=== PATIENT | male | born 1945 ===

== ENCOUNTER 2019-01-13 12:45 | Observation (INO) ==
[2019-01-13] MEDS ORDERED: Ringers Solution, Lactated 1,000 ML IVC SCH ×2 (13:15→18:06)
[2019-01-13] MEDS ORDERED: CeFAZolin Syr 2,000MG/20 ML 2,000 MG/20 ML SYRINGE IVPB ONE (13:15)
[2019-01-13] MEDS ORDERED: Pregabalin 75 MG CAPSULE PO ONE (13:28)
[2019-01-13] MEDS ORDERED: Propofol 500 MG/50 ML INFUS..BTL ONE (13:28)
[2019-01-13] MEDS ORDERED: Famotidine 20 MG/2 ML VIAL IVP ONE (13:28)
[2019-01-13] MEDS ORDERED: Acetaminophen IV 1,000 MG/100 ML INFUS..BTL IVPB ONE (13:28)
[2019-01-13] MEDS ORDERED: Celecoxib 100 MG CAPSULE PO ONE (13:28)
[2019-01-13] MEDS ORDERED: *HR* FentaNYL (PF) 100 MCG/2 ML VIAL ONE (13:30)
[2019-01-13] MEDS ORDERED: *HR* Propofol 200 MG/20 ML VIAL IVP ONE (13:30)
[2019-01-13] MEDS ORDERED: *HR* Midazolam HCl 2 MG/2 ML VIAL ONE (13:30)
[2019-01-13] MEDS ORDERED: Lidocaine -MPF 2% 2 ML VIAL ONE (13:34)
[2019-01-13] MEDS ORDERED: Ondansetron 4 MG/2 ML VIAL ONE (13:34)
[2019-01-13] MEDS ORDERED: Tranexamic Acid 1,000 MG/10 ML VIAL ONE ×2 (13:36→14:55)
[2019-01-13] MEDS ORDERED: Ropivacaine/PF 0.5% 30 ML VIAL ONE (13:55)
[2019-01-13] MEDS ORDERED: Ethanol\\Acetic Acid\\Na Ace\\Ben 1,000 ML IRRIG.SOLN IR ONE (14:28)
[2019-01-13] MEDS ORDERED: Total Joint Mixture (50 ml) IR ONE (14:50)
[2019-01-13] MEDS ORDERED: *HR* PHENYLEPHRINE 1,000 MCG/10 ML SYRINGE IVP ONE ×2 (15:11→15:59)
[2019-01-13 17:37] LABS: Hematocrit 35.5 % (37.5-50.1); Hemoglobin 12.3 g/dL (12.9-16.9)
[2019-01-13] MEDS ORDERED: Dextrose Gel 15 GM/37.5 ML TUBE PO PRN ×2 (18:06)
[2019-01-13] MEDS ORDERED: MOM Conc 10 ML UD.LIQ PO PRN (18:06)
[2019-01-13] MEDS ORDERED: Naloxone 0.4 MG/ML INJ IVP PRN (18:06)
[2019-01-13] MEDS ORDERED: Temazepam 15 MG CAPSULE PO PRN (18:06)
[2019-01-13] MEDS ORDERED: *HR* Dextrose 50 % in Water (Syg) 50 ML SYRINGE IVP PRN (18:06)
[2019-01-13] MEDS ORDERED: Sennosides 8.6 MG TABLET PO PRN (18:06)
[2019-01-13] MEDS ORDERED: *HR* Promethazine 25 MG/ML VIAL IVP PRN (18:06)
[2019-01-13] MEDS ORDERED: traMADol 50 MG TABLET PO PRN (18:06)
[2019-01-13] MEDS ORDERED: D5% in Water 1,000 ML IVC PRN (18:06)
[2019-01-13] MEDS ORDERED: Ondansetron 4 MG/2 ML VIAL IVP PRN (18:06)
[2019-01-13] MEDS: *HR* Metformin 500 MG TABLET PO SCH (20:15)
[2019-01-13] MEDS: GlipiZIDE 5 MG TABLET PO SCH (20:15)
[2019-01-13] MEDS: Insulin LISPRO 300 UNITS/3 ML VIAL SQ SCH ×2 (20:16→22:43)
[2019-01-13] MEDS: Ascorbic Acid 500 MG TABLET PO SCH (20:16)
[2019-01-13] MEDS: *HR* OxyCODONE Immed Rel 5 MG TABLET PO PRN (22:44)
[2019-01-13] MEDS: Insulin DETEMIR 100 UNIT/ML X5UNITS SQ SCH (22:44)
[2019-01-14] MEDS: *HR* Enoxaparin 30 MG/0.3 ML SYRINGE SQ SCH ×2 (05:43→17:02)
[2019-01-14] MEDS: HYDROcodone BIT/Homatropine 5 MG TABLET PO PRN ×2 (05:50→15:42)
[2019-01-14 06:12] LABS: Basophils % 0.2 %
[2019-01-14 06:14] LABS: Eosinophils # 0.1 K/mcL (0.0-0.6); Eosinophils % 2.4 %; Hematocrit 33.8 % (37.5-50.1); Hemoglobin 11.6 g/dL (12.9-16.9); Immature Platelets 8.5 % (1.1-6.1); Lymphocytes # 0.8 K/mcL (0.6-4.6); Lymphocytes % 19.6 %; Mean Corpuscular HGB Conc 34.3 g/dL (31.6-35.5); Mean Corpuscular Hemoglobin 29.7 pg (28.0-33.3); Mean Corpuscular Volume 86.4 fL (83.0-100.0); Mean Platelet Volume 12.2 fL (9.4-12.4); Monocytes # 0.4 K/mcL (0.0-1.3); Monocytes % 10.1 %; Red Blood Count 3.91 M/mcL (4.19-5.50); Red Cell Distribution Width 12.9 % (11.5-14.5); Segmented Neutrophils % 67.7 %; White Blood Count 4.2 K/mcL (4.3-11.1)
[2019-01-14 06:15] LABS: Neutrophils # 2.8 K/mcL (1.6-8.9); Platelet Count 87 K/mcL (140-400)
[2019-01-14 06:33] LABS: Calcium 9.5 mg/dL (8.6-10.3); Potassium 5.1 mEq/L (3.5-5.1)
[2019-01-14 06:38] LABS: Platelet Estimate Decreased (Normal)
[2019-01-14] MEDS: Vitamin E 200 UNIT (90MG) CAPSULE PO SCH (08:10)
[2019-01-14] MEDS: Multivit/Ca/Min/Fe/FA 1 TAB TABLET PO SCH (08:10)
[2019-01-14] MEDS: Lisinopril 20 MG TABLET PO SCH (08:10)
[2019-01-14] MEDS: amLODIPine 5 MG TABLET PO SCH (08:10)
[2019-01-14] MEDS: GlipiZIDE 5 MG TABLET PO SCH ×2 (08:10→21:43)
[2019-01-14] MEDS: Insulin DETEMIR 100 UNIT/ML X5UNITS SQ SCH ×2 (08:11→17:02)
[2019-01-14] MEDS: Ascorbic Acid 500 MG TABLET PO SCH ×3 (08:11→15:42)
[2019-01-14] MEDS: *HR* Metformin 500 MG TABLET PO SCH ×2 (08:11→15:42)
[2019-01-14] MEDS: Insulin LISPRO 300 UNITS/3 ML VIAL SQ SCH ×4 (08:14→21:38)
[2019-01-14] MEDS: *HR* OxyCODONE Immed Rel 5 MG TABLET PO PRN ×2 (08:31→19:54)
[2019-01-14] MEDS ORDERED: MULTIVITAMIN PO SCH (09:00)
[2019-01-15 04:28] LABS: Basophils % 0.2 %; Hematocrit 34.1 % (37.5-50.1); Mean Corpuscular Volume 85.3 fL (83.0-100.0)
[2019-01-15 04:30] LABS: Eosinophils # 0.1 K/mcL (0.0-0.6); Eosinophils % 1.9 %; Immature Granulocytes % 0.4 % (0-4); Immature Platelets 8.8 % (1.1-6.1); Lymphocytes # 0.9 K/mcL (0.6-4.6); Lymphocytes % 18.7 %; Mean Corpuscular HGB Conc 35.2 g/dL (31.6-35.5); Mean Platelet Volume 12.2 fL (9.4-12.4); Monocytes # 0.6 K/mcL (0.0-1.3); Monocytes % 11.7 %; Neutrophils # 3.2 K/mcL (1.6-8.9); Platelet Count 85 K/mcL (140-400); Red Cell Distribution Width 12.9 % (11.5-14.5); Segmented Neutrophils % 67.1 %; White Blood Count 4.7 K/mcL (4.3-11.1)
[2019-01-15 04:44] LABS: BUN/Creatinine Ratio 16 (6-26); Blood Urea Nitrogen 23 mg/dL (8-23); Calcium 9.4 mg/dL (8.6-10.3); Carbon Dioxide 23 mEq/L (23-29); Chloride 107 mEq/L (98-107); Glucose 152 mg/dL (70-105); Osmolality,Calculated 291 (280-300); Potassium 4.2 mEq/L (3.5-5.1); Sodium 137 mEq/L (136-145); eGFR For African Americans > 60 (> 60); eGFR For Non-African Americans 50 (> 60)
[2019-01-15] MEDS: *HR* OxyCODONE Immed Rel 5 MG TABLET PO PRN ×2 (05:42→12:21)
[2019-01-15] MEDS: *HR* Enoxaparin 30 MG/0.3 ML SYRINGE SQ SCH (05:42)
[2019-01-15] MEDS: Multivit/Ca/Min/Fe/FA 1 TAB TABLET PO SCH (08:34)
[2019-01-15] MEDS: Ascorbic Acid 500 MG TABLET PO SCH ×2 (08:34→08:41)
[2019-01-15] MEDS: Vitamin E 200 UNIT (90MG) CAPSULE PO SCH (08:34)
[2019-01-15] MEDS: *HR* Metformin 500 MG TABLET PO SCH (08:35)
[2019-01-15] MEDS: GlipiZIDE 5 MG TABLET PO SCH (08:35)
[2019-01-15] MEDS: Lisinopril 20 MG TABLET PO SCH (08:35)
[2019-01-15] MEDS: amLODIPine 5 MG TABLET PO SCH (08:36)
[2019-01-15] MEDS: Insulin LISPRO 300 UNITS/3 ML VIAL SQ SCH ×2 (08:38→12:12)
[2019-01-15] MEDS: Insulin DETEMIR 100 UNIT/ML X5UNITS SQ SCH (08:40)
[2019-01-15 11:39] VITALS: BP 129/78
== END 2019-01-15 13:37 ==
LOC: SAMDAY 12:45 → 3NENU 12:45
PROVIDERS: ADMIT Orthopaedic Surgery; ATTEND Orthopaedic Surgery